=== PATIENT | female | born 1970 | race Caucasian/White ===

== ENCOUNTER → 2018-01-02 | Outpatient (CLI) | payer OTHER ==
[~2018-01-02] MED LIST: ASPI-1012 PO
== END | disposition home or self-care (01) ==
LOC: RAH 08:48
PROVIDERS: ATTEND Internal Medicine
DX: G43.009 Migraine without aura, not intractable, without status migrainosus (principal)
CPT/HCPCS: 70551

== ENCOUNTER → 2020-05-19 | Outpatient (CLI) | payer OTHER | END | disposition home or self-care (01) | LOC: RAH 09:52 | PROVIDERS: ATTEND Internal Medicine | DX: R22.31 Localized swelling, mass and lump, right upper limb (principal) | CPT/HCPCS: 76882 ==

== ENCOUNTER → 2021-05-24 | Outpatient (CLI) | payer OTHER ==
[~2021-05-24] MED LIST changes: +IOHEXOL 350 MG/ML 100ML INFUS..BTL IV ONE
== END | disposition home or self-care (01) ==
LOC: RAH 07:54
PROVIDERS: ATTEND Internal Medicine
DX: K57.30 Diverticulosis of large intestine without perforation or abscess without bleeding (principal); N28.1 Cyst of kidney, acquired; N83.201 Unspecified ovarian cyst, right side; Z90.49 Acquired absence of other specified parts of digestive tract; Z90.710 Acquired absence of both cervix and uterus
CPT/HCPCS: 74177; Q9967

== ENCOUNTER → 2022-05-29 | Outpatient (CLI) | payer OTHER ==
[~2022-05-29] MED LIST changes: -IOHEXOL 350 MG/ML 100ML INFUS..BTL IV ONE
== END | disposition home or self-care (01) ==
LOC: RAH 10:48
PROVIDERS: ATTEND Internal Medicine Gastroenterology
DX: K29.70 Gastritis, unspecified, without bleeding (principal); R11.12 Projectile vomiting
CPT/HCPCS: 78264; A9541

== ENCOUNTER → 2025-04-07 | Outpatient (CLI) | payer OTHER ==
--- NOTE | 2025-04-08 07:53 | HMCIMG ---
EXAMINATION: ULTRASOUND OF THE ABDOMEN (LIMITED) WITH COLOR DOPPLER. CLINICAL HISTORY: Abnormal alphafetoprotein. COMPARISON: CT abdomen and pelvis with contrast dated 05/24/2021. TECHNIQUE: Real-time grayscale ultrasound images of the abdomen. In addition, color Doppler is medically necessary to perform in order to evaluate vascularity and blood flow. FINDINGS: Liver: Normal in caliber, the right hepatic lobe measures 15.3 cm in the craniocaudal dimension. There is increased echogenicity of the hepatic parenchyma. There is no focal hepatic abnormality or intrahepatic biliary ductal dilatation. There is normal spectral Doppler of the main portal vein (PSV is 16 cm/s). Gallbladder: Post cholecystectomy status. Common bile duct is normal in caliber, measuring 0.4 cm. Pancreas: Body appears normal in caliber and echotexture. No calcification or dilated pancreatic duct. Tail is obscured by overlying bowel gas. There is a cystic lesion that measures 0.4 x 0.3 x 0.4 cm in the head region. The right kidney is normal in caliber, the right kidney measures 9.6 x 3.4 x 4.6 cm in craniocaudal, AP, and transverse dimensions respectively. There is normal renal cortical thickness, and cortical echogenicity. There is no renal calculus or hydronephrosis. IMPRESSION: Hepatic steatosis. Post cholecystectomy status. Cyst in the pancreatic head. Interval appearance. Recommend MR abdomen. /Mccoy
== END | disposition home or self-care (01) ==
LOC: RAH 08:08
PROVIDERS: ATTEND Internal Medicine
DX: Z12.31 Encounter for screening mammogram for malignant neoplasm of breast (principal); K76.0 Fatty (change of) liver, not elsewhere classified; R77.2 Abnormality of alphafetoprotein; Z90.49 Acquired absence of other specified parts of digestive tract
CPT/HCPCS: 76705; 77063; 77067

== ENCOUNTER → 2025-06-09 | Outpatient (CLI) | payer OTHER ==
[~2025-06-09] MED LIST changes: +GADOTERATE MEGLUMINE 5 MMOL/10 ML VIAL IV ONE
--- NOTE | 2025-06-10 12:40 | HMCIMG ---
EXAM: MR Abdomen with and without Intravenous Contrast. CLINICAL HISTORY: K86.2 Cyst of pancreas TECHNIQUE: Multisequence, multiplanar magnetic resonance images of the abdomen with and without intravenous contrast. Series acquired: 12 - G+ COR LAVA ARC - TR: 3.6 - TE: 1.7 - ET: 1.0 - Thk: 4.4 1000 - AX LAVA ARC DYNAMIC - TR: 4.1 - TE: 1.7 - ET: 1.0 - Thk: 3.0 1001 - PH1/AX LAVA ARC DYNAMIC - TR: 4.1 - TE: 1.7 - ET: 1.0 - Thk: 3.0 1004 - FT: PH1/AX LAVA ARC DYNAMIC - TR: 4.1 - TE: 1.7 - ET: 1.0 - Thk: 20.0 CONTRAST: COMPARISON: The study dated 04/07,[facility] FINDINGS: LOWER THORAX: No pleural effusion. LIVER: Unremarkable. GALLBLADDER AND BILE DUCTS: No biliary ductal dilatation is evident. Post cholecystectomy. PANCREAS: Unremarkable. No ductal dilation. SPLEEN: Unremarkable. ADRENALS: Unremarkable. KIDNEYS: The kidneys appear within normal limits. No hydronephrosis or mass evident. STOMACH AND BOWEL: Limited evaluation of the stomach and bowel demonstrates no acute process. LYMPH NODES: No lymphadenopathy is evident. VASCULATURE: No abdominal aortic aneurysm. IMPRESSION: Normal pancreas. No acute intraabdominal or pelvic pathology. /[place]ar
== END | disposition home or self-care (01) ==
LOC: RAH 07:59
PROVIDERS: ATTEND Internal Medicine
DX: K76.0 Fatty (change of) liver, not elsewhere classified (principal); K86.2 Cyst of pancreas; R77.2 Abnormality of alphafetoprotein; Z90.49 Acquired absence of other specified parts of digestive tract; Z80.9 Family history of malignant neoplasm, unspecified
CPT/HCPCS: 74183; A9575